=== PATIENT | female | born 1980 | race Caucasian/White ===

== ENCOUNTER → 2017-01-25 | Outpatient (CLI) | payer OTHER ==
[~2017-01-25] MED LIST: LOESTRIN FE 1/21 TAB PO; SINGULAIR PO
--- NOTE | ~2017-01-25 | CR141 ---
[facility]. [facility] A Service of [facility] & [facility] RADIOLOGY TEXT RESULTS PATIENT: REG KURTZ LOCATION: [facility] : 78 UNIT #: [id number] AGE: [address]: Santa Landry SEX: F ORDER DR: [id number] [address] [address] [id number] O MR#: [id number] Acc #: [id number] NAME: REG KURTZ : 1980 SEX: F STUDY DATE/TIME: 01/25/2017 14:40 UNIT: [facility] ROOM: STUDY DESCRIPTION: CR Hand Min 3 Views Lt Attending Physician: Santa Landry A.P.R.N. Referring Physician: Santa Landry A.P.R.N. Ordering Physician: Santa Landry A.P.R.N. Primary Care Physician: Santa Landry A.P.R.N. MEDICAL IMAGING REPORT This report is preliminary unless electronic signature is present. EXAM Left hand 3 views HISTORY Left hand pain, fell on January 07, pressure over fifth metacarpal. FINDINGS 3 views of the hand are submitted. Bony elements appear intact. Joint spaces and articular surfaces are preserved. No fractures are identified. CONCLUSION Negative Dictated by... Paul Puliod M.D. THIS IS AN ELECTRONICALLY VERIFIED REPORT Paul Pulido M.D. at 01/29/2017 4:50 PM Jose Antonio TD: 01/25/2017 18:34 JOB #: [id number] MEDICAL IMAGING REPORT Page 1 of 1
== END | disposition home or self-care (01) ==
LOC: SRAD 14:32
DX: M79.642 Pain in left hand (principal)
CPT/HCPCS: 73130